=== PATIENT | female | born 2005 | race Caucasian/White ===

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

== ENCOUNTER 2023-04-05 13:32 | Outpatient (CLI) | payer OTHER, SELFPAY ==
--- NOTE | 2023-04-05 13:33 | US_ITS ---
PROCEDURE INFORMATION: Exam: US Left Breast, Complete Exam date and time: 04/05/2023 1:55 PM Age: 17 years old Clinical indication: Palpable abnormality TECHNIQUE: Imaging protocol: Complete ultrasound of all four quadrants of the left breast and the retroareolar regions, including ultrasound of the axilla when performed. COMPARISON: No relevant prior studies available. FINDINGS: Breast: Sonographic images of the left breast including the retroareolar region, all 4 quadrants and the axilla do not demonstrate any cystic masses. Palpable abnormality in the left 3 o'clock axis 5 cm from the nipple corresponds to a multilobulated hypoechoic solid mass measuring 2.4 x 2.2 x 0.9 cm. There is an adjacent hypoechoic ovoid similar appearing mass immediately inferior to the dominant palpable mass measuring 1.3 x 0.8 x 1.1 cm. Third hypoechoic solid mass also noted in the 3 o'clock axis 5 cm from the nipple measures 1.2 x 0.9 x 1.1 cm. Sonographic images of the left 6 o'clock axis 1 cm from the nipple demonstrates a questionable additional hypoechoic solid mass versus focal dense breast tissue measuring 0.6 x 0.3 x 0.7 cm. Sonographic images of the left 10 o'clock axis 2 cm from the nipple demonstrates a lobulated hypoechoic solid mass measuring 1.2 x 0.5 x 1.0 cm. Sonographic images of the left 12 o'clock axis 2 cm from the nipple demonstrates an ovoid hypoechoic solid mass measuring 0.9 x 0.3 x 0.6 cm. No architectural distortion or acoustical shadowing. No skin thickening or axillary adenopathy. IMPRESSION: Multiple solid masses scattered throughout much of the left breast, the dominant mass corresponding to the patient's complaint of a palpable abnormality. 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 A six-month follow-up left breast ultrasound is recommended to ensure stability over time .Further evaluation of a palpable abnormality should be based on clinical grounds regardless of radiographic findings or lack thereof. Cystic ASSESSMENT: BI-RADS Category 3: Probably benign
== END 2023-04-05 23:59 ==
LOC: RAD 13:33
PROVIDERS: PCP Nurse Practitioner Family; Visit Provider Physician Assistant
DX: N63.21 Unspecified lump in the left breast, upper outer quadrant (principal)
CPT/HCPCS: 76641